=== PATIENT | female | born 1960 | race Caucasian/White ===

== ENCOUNTER 2017-03-03 14:18 | Emergency (ER) | payer MEDICARE, MEDICAID ==
[~2017-03-03] VITALS: Ht 154.9 cm; Wt 59.0 kg
[2017-03-03 15:47] VITALS: BP 177/133
== END 2017-03-03 15:10 | disposition critical access hospital (66) ==
LOC: ER 14:18 → EDBD 14:18 → ER 15:10
DX: S01.01XA Laceration without foreign body of scalp, initial encounter (principal); I10 Essential (primary) hypertension; F17.210 Nicotine dependence, cigarettes, uncomplicated; W18.39XA Other fall on same level, initial encounter; Y93.89 Activity, other specified; Y92.89 Other specified places as the place of occurrence of the external cause; Y99.8 Other external cause status
CPT/HCPCS: 70450; 70486